=== PATIENT | male | born 1995 | race Hispanic/Latino ===

== ENCOUNTER 2021-02-22 14:32 | Emergency (ER) | payer OTHER ==
[2021-02-22] MEDS ORDERED: MORPHINE 4 MG/1 ML INJ IV ONE (14:41)
--- NOTE | 2021-02-22 15:19 | XRay Report ---
LEFT SHOULDER 3 VIEWS INDICATION / CLINICAL INFORMATION: Left shoulder pain while exercising. Deformity of left shoulder. COMPARISON: None available. FINDINGS: BONES and JOINT(S): No acute fracture or subluxation. No significant arthritis. SOFT TISSUES: No significant abnormality. ADDITIONAL FINDINGS: None. IMPRESSION: 1. No acute findings. Signer Name: Ramon Solitario MD Signed: 02/22/2021 3:14 PM Workstation Name: [id number]
[2021-02-22] MEDS ORDERED: ONDANSETRON 4 MG/2 ML INJ ONE (15:20)
[2021-02-22] MEDS ORDERED: ONDANSETRON 4 MG/2 ML INJ IV ONE (15:24)
[2021-02-22] MEDS ORDERED: oxyCODONE /ACETAMINOPHEN 5-325MG TAB PO ONE (15:33)
[2021-02-22] MEDS ORDERED: IBUPROFEN 800 MG TAB PO ONE (15:33)
--- NOTE | 2021-02-22 15:39 | Emergency Department Report ---
Upper Extremity - HPI Chief Complaint: Shoulder Injury Stated Complaint: POSSIBLE DISLOCATION SHOULDER Time Seen by Provider: 02/22/21 14:40 Upper Extremity: Left Shoulder Occurred When: Today Mechanism: Other (up down movement) Symptoms: Yes Pain with Movement, Yes Limited Range of Movement, No Deformity, No Numbness, No Weakness, No Swelling, No Bruising/Ecchymosis, No Laceration or Abrasion Other History: Chief complaint: Left shoulder pain. HPI: This is a 25-year-old male with history of right shoulder dislocation who presents with severe left shoulder pain. Patient has had significant repetitive strenuous exercise. He is training for [employer]. He is a [employer]. He had severe sudden onset of left shoulder pain when he brought down a 7 pound gun. No direct blow to the shoulder. No previous injury to left shoulder. He also has groin pain as a result of exercise. Severe Zenatane pain requiring 100 mcg of fentanyl. 8 out of 10. Radiates to the left rhomboid region. ED Review of Systems ROS: Stated complaint: POSSIBLE DISLOCATION SHOULDER Other details as noted in HPI Constitutional: denies: fever, malaise Respiratory: denies: cough, shortness of breath Cardiovascular: denies: chest pain Gastrointestinal: denies: abdominal pain, nausea, vomiting Musculoskeletal: arthralgia. denies: back pain, joint swelling, myalgia ED Past Medical Hx - Past Medical History Previous Medical History?: Yes Additional medical history: Right shoulder dislocation - Surgical History Past Surgical History?: No - Medications Home Medications: Home Medications Medication Instructions Recorded Confirmed Last Taken Type Ibuprofen [Motrin 400 MG tab] 400 mg PO QID 5 Days #20 tablet 02/22/21 Unknown Rx oxyCODONE /ACETAMINOPHEN [Percocet 1 tab PO Q6HR PRN #15 tablet 02/22/21 Un known Rx 5/325] Upper Extremity Exam - Exam General: Vital signs noted. No distress. Alert and acting appropriately. Head and Torso: No HEENT Abnormality, No Neck Tenderness, No Chest/Lungs Abnormality, No Abdominal Tenderness, No Back Tenderness Shoulder Exam: Yes Shoulder Tenderness, Yes Clavicle Tenderness, Yes AC Joint Tenderness, No Normal Range of Motion in Shoulder, No Shoulder Deformity Arm Exam: No Arm/Humerus Tenderness, No Arm Deformity Elbow: Yes Normal Range of Motion in Elbow, No Elbow Tenderness, No Elbow Deformity Forearm: No Forearm Tenderness, No Forearm Deformity, No Pain with Pronation, No Pain with Supination Wrist: Yes Normal ROM in Wrist, No Wrist Tenderness, No Wrist Deformity, No Snuffbox Tenderness, No Pain with Axial Thumb Compression Hand: Yes Normal ROM in Digit(s), No Hand Tenderness, No Hand Deformity, No Digit Tenderness, No Digit(s) Deformity, No Tendon Dysfunction CMS Exam: Yes Normal Distal Pulses, Yes Normal Capillary Refill, Yes Normal Distal Sensation, No Broken Skin ED Course Vital Signs 02/22/21 02/22/21 02/22/21 14:42 14:46 15:00 Pulse Rate 94 H 92 H 94 H Respiratory 12 12 11 L Rate Blood Pressure 116/80 117/71 O2 Sat by Pulse 98 98 97 Oximetry 02/22/21 02/22/21 15:16 15:26 Pulse Rate 96 H Respiratory 11 L 16 Rate Blood Pressure 117/71 O2 Sat by Pulse 98 Oximetry ED Medical Decision Making - Radiology Data Radiology results: report reviewed, image reviewed Left shoulder 3 views: No acute fracture subluxation, no significant arthritis, no significant abnormality, no acute findings according radiology impression - Medical Decision Making Acute left shoulder sprain, acute/shoulder rotator cuff injury: Patient was treated with IV analgesia. Prescribed Percocet for pain, ibuprofen for inflammation and pain. Provided left upper extremity sling. Given ice pack. Referred to orthopedic surgeon. Recommended rest until completely pain-free. Critical care attestation.: If time is entered above; I have spent that time in minutes in the direct care of this critically ill patient, excluding procedure time. ED Disposition Clinical Impression: Sprain of left shoulder, Injury of left rotator cuff Disposition: TO HOME OR SELFCARE Is pt being admited?: No Does the pt Need Aspirin: No Condition: Stable Instructions: Shoulder Sprain Prescriptions: Ibuprofen [Motrin 400 MG tab] 400 mg PO QID 5 Days #20 tablet oxyCODONE /ACETAMINOPHEN [Percocet 5/325] 1 tab PO Q6HR PRN #15 tablet PRN Reason: Pain Referrals: PATTIE PASTOR MD [Staff Physician] - [facility]
[2021-02-22 16:15] VITALS: BP 114/62
== END 2021-02-22 16:21 | disposition home or self-care (01) ==
LOC: ED 14:32
DX: S43.402A Unspecified sprain of left shoulder joint, initial encounter (principal); Z98.890 Other specified postprocedural states; Z79.899 Other long term (current) drug therapy; X58.XXXA Exposure to other specified factors, initial encounter; Y93.89 Activity, other specified; Y92.89 Other specified places as the place of occurrence of the external cause; Y99.8 Other external cause status
CPT/HCPCS: 73030; 96374; 96375; 99284; J2270; J2405